=== PATIENT | female | born 1960 | race Caucasian/White ===

== ENCOUNTER → 2017-06-17 | Emergency (ER) | payer MEDICAID ==
[~2017-06-17] VITALS: Ht 160 cm; Wt 87.3 kg
[~2017-06-17] MED LIST: AZIT-57 PO; AZIT250T PO; TAM75C PO
[2017-06-17 18:43] VITALS: BP 152/87
== END | disposition home or self-care (01) ==
LOC: ER 17:45
DX: J20.9 Acute bronchitis, unspecified (principal); E78.00 Pure hypercholesterolemia, unspecified; I10 Essential (primary) hypertension; E11.9 Type 2 diabetes mellitus without complications; Z79.899 Other long term (current) drug therapy
CPT/HCPCS: 99283

== ENCOUNTER 2019-04-24 11:12 | Day surgery (SDC) | payer MEDICAID ==
[2019-04-23 11:19] LABS: BASOPHILS # (AUTO) 0.1 X10'3 (0-0.2); BASOPHILS % (AUTO) 0.9 % (0-1); EOSINOPHILS # (AUTO) 0.2 X10'3 (0-0.9); EOSINOPHILS % (AUTO) 2.5 % (0-6); HEMATOCRIT 40.7 % (35.0-45.0); HEMOGLOBIN 13.9 g/dl (12.0-16.0); LYMPHOCYTES # (AUTO) 1.5 X10'3 (1.1-4.8); LYMPHOCYTES % (AUTO) 22.9 % (21-51); MEAN CORPUSCULAR HEMOGLOBIN 29.1 PG (27.0-31.0); MEAN CORPUSCULAR HGB CONC 34.3 g/dL (33.0-36.5); MEAN PLATELET VOLUME 9.1 FL (7.4-10.4); MONOCYTES # (AUTO) 0.5 X10'3 (0-0.9); MONOCYTES % (AUTO) 7.5 % (2-12); NEUTROPHILS # (AUTO) 4.4 X10'3 (1.8-7.7); NEUTROPHILS % (AUTO) 66.2 % (42-75); PLATELET COUNT 200 X10'3 (140-440); RED BLOOD COUNT 4.79 X10'6 (4.20-5.60); RED CELL DISTRIBUTION WIDTH 14.2 % (11.5-14.5); WHITE BLOOD COUNT 6.6 X10'3 (4.5-11.0)
[2019-04-23 11:31] LABS: PARTIAL THROMBOPLASTIN TIME 24 SECONDS (22-32)
[2019-04-23 11:36] LABS: ALANINE AMINOTRANSFERASE 49 U/L (12-78); ALBUMIN 3.7 G/DL (3.4-5.0); ALBUMIN/GLOBULIN RATIO 1.1 (1.1-1.5); ALKALINE PHOSPHATASE 83 IU/L (46-116); ANION GAP 10 (8-16); ASPARTATE AMINO TRANSFERASE 25 U/L (10-37); BILIRUBIN,TOTAL 0.4 MG/DL (0.1-1.0); BLOOD UREA NITROGEN 13 MG/DL (7-18); BUN/CREATININE RATIO 14.6 (6.6-38.0); CALCIUM 8.7 MG/DL (8.5-10.1); CHLORIDE 102 MMOL/L (99-107); CREATININE 0.89 MG/DL (0.40-0.90); GLUCOSE 358 MG/DL (70-104); POTASSIUM 3.8 MMOL/L (3.5-5.1); SODIUM 137 MMOL/L (135-145); TOTAL CARBON DIOXIDE 25.4 MMOL/L (24-32); TOTAL PROTEIN 7.2 G/DL (6.4-8.2); eGFR 65 ML/MIN
[~2019-04-24] VITALS: Ht 157.5 cm; Wt 85.6 kg
[2019-04-24] VITALS (9 sets, daily range): BP systolic 115–146; BP diastolic 67–91
[~2019-04-24 11:12] MED LIST changes: -AZIT-57 PO; -TAM75C PO
[2019-04-24] MEDS ORDERED: insulin Lispro (HumaLOG) vial - multi-dose SQ SCH (11:40)
[2019-04-24] MEDS ORDERED: diphenhydrAMINE 25mg capsule PO PRN (11:40)
[2019-04-24] MEDS ORDERED: normal saline 1,000 ML IV SCH (11:40)
[2019-04-24] MEDS ORDERED: nitroGLYCERIN 0.4mg SUBLingual tab SL PRN ×2 (11:40→16:45)
[2019-04-24] MEDS ORDERED: LORazepam 0.5 MG tablet PO PRN (11:40)
[2019-04-24] MEDS ORDERED: dextrose ORAL solution 15 GM/59 ML bottle PO PRN ×2 (11:45)
[2019-04-24] MEDS ORDERED: glucagon, human recombinant 1mg kit SUBCUT PRN (11:45)
[2019-04-24] MEDS ORDERED: dextrose 50%-water 50ml dispensing syringe IV PRN ×2 (11:45)
[2019-04-24] MEDS ORDERED: LIDOcaine 1% (10mg/ml) 2ml vial ONE (11:53)
[2019-04-24] MEDS ORDERED: METF-436 PO (12:26)
[2019-04-24] MEDS ORDERED: LISI10TA4 PO (12:26)
[2019-04-24] MEDS ORDERED: NITR0.4T51 SL (12:26)
[2019-04-24] MEDS ORDERED: FURO-149 PO (12:26)
[2019-04-24] MEDS ORDERED: LANTUS SQ (12:26)
[2019-04-24] MEDS ORDERED: AMLO10TA PO (12:26)
[2019-04-24] MEDS ORDERED: ASPI81TA52 PO (12:26)
[2019-04-24] MEDS ORDERED: HYDR-4070 PO (12:26)
[2019-04-24] MEDS ORDERED: GLIP5TAB13 PO (12:26)
[2019-04-24] MEDS ORDERED: POTA8TAB3 PO (12:26)
[2019-04-24] MEDS ORDERED: ATOR80TA PO (12:26)
[2019-04-24] MEDS ORDERED: iohexol 350MG/ML 100ml bottle IV ONE (14:34)
[2019-04-24] MEDS ORDERED: LIDOcaine 1% (10mg/ml)w/preservative injection 20ml MDV ONE ×2 (14:34→15:26)
[2019-04-24] MEDS ORDERED: iohexol 350 MG/ML 50ML vial IV ONE ×2 (14:34→15:44)
[2019-04-24] MEDS ORDERED: fentaNYL/PF 50MCG/1 ML 2ML syringe ONE ×2 (14:34→15:21)
[2019-04-24] MEDS ORDERED: midazolam 2 mg/2 ml injection ONE ×2 (14:34→15:21)
[2019-04-24] MEDS ORDERED: heparin 1,000 UNITS/NS 500ml 500 ML ONE ×2 (14:34)
[2019-04-24] MEDS ORDERED: verapamil 2.5 mg/ml inj IV ONE (15:25)
[2019-04-24] MEDS ORDERED: heparin 1,000unit/ml 10ml vial 10 ML ONE (15:26)
[2019-04-24] MEDS ORDERED: nitroGLYCERIN-Tridil 50MG/D5W 250 ML IV ONE (15:26)
[2019-04-24] MEDS ORDERED: ondansetron/PF 4mg/2ml inj IV PRN (16:45)
[2019-04-24] MEDS ORDERED: normal saline 1000ml 1,000 ML IV SCH (16:45)
[2019-04-24] MEDS ORDERED: proCHLORperazine 10 MG/2 ml inj IV PRN (16:45)
[2019-04-24] MEDS ORDERED: OXAZEpam 15mg capsule PO PRN (16:45)
--- NOTE | 2019-04-24 19:25 | NUR ---
Problems reprioritized. Patient report given, questions answered & plan of care reviewed with CLARA MONTERO.
[2019-04-24] MEDS ORDERED: insulin glargine (Lantus) pen - multi-dose SQ SCH (21:00)
== END 2019-04-24 20:05 | disposition home or self-care (01) ==
LOC: SSTAY O 11:12
PROVIDERS: ATTEND Internal Medicine Cardiovascular Disease
DX: R94.31 Abnormal electrocardiogram [ECG] [EKG] (principal); I25.10 Atherosclerotic heart disease of native coronary artery without angina pectoris; R07.9 Chest pain, unspecified; R06.02 Shortness of breath; I42.9 Cardiomyopathy, unspecified; I70.203 Unspecified atherosclerosis of native arteries of extremities, bilateral legs; I77.1 Stricture of artery; E11.9 Type 2 diabetes mellitus without complications; I10 Essential (primary) hypertension; J44.9 Chronic obstructive pulmonary disease, unspecified; Z86.19 Personal history of other infectious and parasitic diseases; E78.5 Hyperlipidemia, unspecified
CPT/HCPCS: 36415; 71046; 76937; 80053; 82948; 85025; 85610; 85730; 93005; 93458; 93567; 99152; 99153; C1769; C1894; J1644; J2001; J2250; J3010; J7030; Q0163; Q9967; A4620; A5120; A6258; J1815; J3490

== ENCOUNTER 2021-09-20 07:41 | Emergency (ER) | payer MEDICAID ==
[~2021-09-20] VITALS: Ht 157.5 cm; Wt 82.7 kg
[~2021-09-20 07:41] MED LIST changes: +AMLO10TA PO; +ASPI81TA52 PO; +ATOR80TA PO; -AZIT250T PO; +FURO-149 PO; +GLIP5TAB13 PO; +HYDR-4070 PO; +LANTUS SQ; +LISI10TA27 PO; +METF-436 PO; +NITR0.4T51 SL; +POTA8TAB69 PO
[2021-09-20] MEDS ORDERED: AZIT-21 PO (10:37)
[2021-09-20 10:49] VITALS: BP 106/66
== END 2021-09-20 10:52 | disposition home or self-care (01) ==
LOC: ER 07:42
DX: J40 Bronchitis, not specified as acute or chronic (principal); E78.00 Pure hypercholesterolemia, unspecified; I10 Essential (primary) hypertension; E11.9 Type 2 diabetes mellitus without complications; Z79.899 Other long term (current) drug therapy
CPT/HCPCS: 99283

== ENCOUNTER 2021-10-06 23:46 | Emergency (ER) | payer MEDICAID ==
[~2021-10-06] VITALS: Ht 157.5 cm; Wt 80.9 kg
[2021-10-07] MEDS ORDERED: triamcinolone acetonide 40mg/ml inj IM ONE (01:20)
[2021-10-07] MEDS ORDERED: dexamethasone sod phosphate 10mg/ml inj IM STA (01:20)
[2021-10-07] MEDS ORDERED: diphenhydrAMINE 25mg capsule PO ONE (01:20)
[2021-10-07] MEDS ORDERED: PRED20TA PO (01:23)
[2021-10-07 01:38] VITALS: BP 142/96
== END 2021-10-07 01:40 | disposition home or self-care (01) ==
LOC: ER 23:47
DX: L23.7 Allergic contact dermatitis due to plants, except food (principal); E78.00 Pure hypercholesterolemia, unspecified; I10 Essential (primary) hypertension; E11.9 Type 2 diabetes mellitus without complications; Z98.890 Other specified postprocedural states; Z79.899 Other long term (current) drug therapy; Z79.82 Long term (current) use of aspirin; Z79.4 Long term (current) use of insulin
CPT/HCPCS: 96372; 99284; J1100; J3301; Q0163

== ENCOUNTER 2023-07-28 08:03 | Emergency (ER) | payer MEDICAID ==
[~2023-07-28] VITALS: Ht 157.5 cm; Wt 83.5 kg
[~2023-07-28 08:03] MED LIST changes: -GLIP5TAB13 PO; +GLIP5TAB23 PO; -HYDR-4070 PO; +HYDR50TA46 PO
[2023-07-28 08:04] VITALS: RESP 16; TEMP 98
[2023-07-28 11:04] VITALS: BP 121/75; PULSE 98; O2SAT 94
[2023-07-28] MEDS ORDERED: METH4TAB81 PO (11:24)
[2023-07-28] MEDS ORDERED: TRIA15CR61 TOP (11:24)
[2023-07-28] MEDS: triamcinolone acetonide 40mg/ml inj IM ONE (11:29)
== END 2023-07-28 11:43 | disposition home or self-care (01) ==
LOC: ER 08:04
DX: L23.7 Allergic contact dermatitis due to plants, except food (principal); E78.00 Pure hypercholesterolemia, unspecified; I10 Essential (primary) hypertension; E11.9 Type 2 diabetes mellitus without complications; Z79.899 Other long term (current) drug therapy; Z79.82 Long term (current) use of aspirin
CPT/HCPCS: 96372; 99283; J3301